=== PATIENT | male | born 1995 | race African-American/Black ===

== ENCOUNTER 2022-04-09 23:26 | Emergency (ER) | payer SELFPAY ==
[~2022-04-09] VITALS: Ht 177.8 cm; Wt 95.3 kg
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
[2022-04-10] MEDS ORDERED: HYDROCODONE/APAP 5/325MG TABLET ONE (00:15)
--- NOTE | 2022-04-10 00:17 | NUR ---
PT TAKEN FOR CT SCAN
[2022-04-10] MEDS ORDERED: HYDROCODONE/APAP 5/325MG TABLET PO ONE (00:30)
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
--- NOTE | 2022-04-10 02:32 | NUR ---
Patient does not wish to proceed with medical care recommended by Dr. Aguilar. Patient given information related to possible complications, up to and including , which could occur as a result of leaving the hospital at this time. Patient verbalizes understanding of risks involved due to leaving against medical advice. Patient has signed AMA form.Patient discharged to home in stable condition. Written and verbal after care instructions given. Patient verbalizes understanding of instruction.
[2022-04-10 02:33] VITALS: BP 138/90
== END 2022-04-10 02:34 | disposition left against medical advice (07) ==
LOC: ER 23:29
DX: S16.1XXA Strain of muscle, fascia and tendon at neck level, initial encounter (principal); S00.83XA Contusion of other part of head, initial encounter; M54.9 Dorsalgia, unspecified; M25.562 Pain in left knee; V49.49XA Driver injured in collision with other motor vehicles in traffic accident, initial encounter; Y93.89 Activity, other specified; Y92.413 State road as the place of occurrence of the external cause; Y99.8 Other external cause status
CPT/HCPCS: 70450-TC; 70486-TC; 71045-TC; 72125-TC; 72128-TC; 72131-TC; 73564-TC; 73610-TC